=== PATIENT | male | born 1945 ===

== ENCOUNTER → 2018-10-14 19:16 | Outpatient (ROUT) | payer MEDICARE, SELFPAY ==
[2018-10-14 19:40] LABS: Hematocrit 31.9 % (41-53); Hemoglobin 9.6 g/dL (13.5-17.5)
[2018-10-14 19:42] LABS: HEMOLYSIS < 15 (0-50); Iron 32 ug/dL (49-181)
[2018-10-14 19:54] LABS: Percent Iron Saturation 6 % (20-50); Total Iron Binding Capacity 534 ug/dL (261-462); Transferrin 409 mg/dL (206-381)
[2018-10-14 20:20] LABS: Ferritin 6.2 ng/mL (17.9-464)
[2018-10-14 20:50] LABS: Folate > 20.0 ng/mL (2.76-20.0); Vitamin B12 775 pg/mL (239-931)
== END ==
PROVIDERS: Visit Provider Family Medicine
DX: D50.9 Iron deficiency anemia, unspecified (principal); D64.9 Anemia, unspecified
CPT/HCPCS: 36415; 82607; 82728; 82746; 83540; 83550; 85014; 85018